=== PATIENT | male | born 1990 | race American Indian/Alaskan Native ===

== ENCOUNTER 2017-12-24 18:10 | Inpatient (IN) | payer MEDICAID ==
[2017-12-24 18:15] VITALS: O2SAT 97
[2017-12-24] MEDS ORDERED: Sodium Chloride 0.9% 1,000 ML IV STA (19:14)
--- NOTE | 2017-12-24 20:04 | ED PDOC ---
HPI: Psych/Substance Abuse Time Seen by Provider: 12/24/17 18:29 Chief Complaint (Nursing): Palpitations Chief Complaint (Provider): Psych Eval History Per: Patient History/Exam Limitations: no limitations Onset/Duration Of Symptoms: Days (x1 month) Current Symptoms Are (Timing): Still Present Additional Complaint(s): 27 year old male presents to the ED via EMS for a psychiatric evaluation. As per patient, ever since moving from a [place] homeless senior care to the [facility] , he has been off his medications because he feels as if they are not working, stating he has also been hearing voices and sleeping poorly. Otherwise, he denies suicidal / homicidal ideation, and drug or alcohol use today. PMD: none provided Past Medical History Reviewed: Historical Data, Nursing Documentation, Vital Signs Vital Signs: Last Vital Signs Temp 98.7 F 12/24/17 18:13 Pulse 130 H 12/24/17 18:13 Resp 16 12/24/17 18:13 BP 134/79 12/24/17 18:13 Pulse Ox 97 12/24/17 18:13 - Medical History PMH: Bipolar Disorder, Depression Denies: Chronic Kidney Disease - Surgical History Surgical History: No Surg Hx - Family History Family History: States: No Known Family Hx - Living Arrangements Living Arrangements: Other (homeless senior care) - Social History Current smoker - smoking cessation education provided: Yes Alcohol: Social Drugs: Cannabis - Allergies Allergies/Adverse Reactions: Allergies Allergy/AdvReac Type Severity Reaction Status Date / Time No Known Allergies Allergy Verified 12/24/17 19:04 Review of Systems ROS Statement: Except As Marked, All Systems Reviewed And Found Negative Psych: Positive for: Other (auditory hallucinations). Negative for: Suicidal ideation (or homicidal) Physical Exam - Reviewed Nursing Documentation Reviewed: Yes Vital Signs Reviewed: Yes - Physical Exam Appears: Positive for: No Acute Distress Head Exam: Positive for: ATRAUMATIC, NORMOCEPHALIC Skin: Positive for: Warm, Dry Eye Exam: Positive for: EOMI, PERRL ENT: Negative for: Pharyngeal Erythema, Tonsillar Exudate Neck: Positive for: Painless ROM, Supple Cardiovascular/Chest: Positive for: Chest Non Tender, Tachycardia (with regular rhythm). Negative for: Murmur Respiratory: Positive for: Normal Breath Sounds. Negative for: Respiratory Distress Gastrointestinal/Abdominal: Positive for: Soft. Negative for: Tenderness Back: Positive for: Normal Inspection. Negative for: Decreased ROM Extremity: Positive for: Normal ROM. Negative for: Deformity Lymphatic: Negative for: Adenopathy Neurologic/Psych: Positive for: Alert, Mood/Affect (anxious mood, flat affect). Negative for: Motor/Sensory Deficits - Laboratory Results Result Diagrams: 12/24/17 19:42 12/24/17 19:42 - ECG ECG Rhythm: Positive for: Normal ST Segment, Sinus Rhythm (w PACs) O2 Sat by Pulse Oximetry: 97 (RA) Pulse Ox Interpretation: Normal Medical Decision Making Medical Decision Making: Time: 1912 Initial Impression: bipolar disorder, auditory hallucinations, tachycardia Ddx includes but is not limited to: dehydration, decompensation of bipolar disorder, alcohol / drug intoxication Initial Plan: --EKG --Acetaminophen --Alcohol serum --CMP --Drug screen --Salicylate --Crisis eval --Urine dipstick --CBC with differential --Normal saline IV Labs unremarkable HR improved with rest and IVF Evaluated by STELLA Cuellar who dw Dr Littlejohn. Pt to be hospitalized for bipolar stabilization. Medically stable for psychiatric floor. Scribe Attestation: Documented by Katie Suarez, acting as a scribe for Shakila Wood MD. Provider Scribe Attestation: All medical record entries made by the Scribe were at my direction and personally dictated by me. I have reviewed the chart and agree that the record accurately reflects my personal performance of the history, physical exam, medical decision making, and the department course for this patient. I have also personally directed, reviewed, and agree with the discharge instructions and disposition. Disposition - Clinical Impression Clinical Impression: Bipolar disorder - Disposition Disposition Time: 21:00 Condition: STABLE - Pt Status Changed To: Hospital Disposition Of: Inpatient - Admit Certification Admit to Inpatient:: After my assessment, the patient will require hospitalization for at least two midnights. This is because of the severity of symptoms shown, intensity of services needed, and/or the medical risk in this patient being treated as an outpatient. - POA Present On Arrival: None
[2017-12-24 20:05] LABS: BASO # 0.1 K/uL (0.0-0.2); BASO % 0.9 % (0.0-2.0); EOS # 0.2 K/uL (0.0-0.7); EOS % 2.3 % (0.0-4.0); LYMPH # 2.1 K/uL (1.0-4.3); LYMPH % 27.2 % (20.0-40.0); MEAN CELL VOLUME 86.4 fl (80.0-94.0); MEAN CORPUSCULAR HEMOGLOBIN 29.3 pg (27.0-31.0); MEAN CORPUSCULAR HGB CONC 33.9 g/dL (33.0-37.0); MEAN PLATELET VOLUME 10.5 fl (7.2-11.7); MONO # 1.1 K/uL (0.0-0.8); MONO % 14.4 % (0.0-10.0); NEUT # 4.2 K/uL (1.8-7.0); NEUT % 55.2 % (50.0-75.0); NRBC % 0.1 % (0.0-0.0); RBC 5.13 Mil/uL (4.40-5.90); RED CELL DISTRIBUTION WIDTH 14.3 % (11.5-14.5); WHITE BLOOD COUNT 7.6 K/uL (4.8-10.8)
[2017-12-24 20:29] LABS: BLOOD UREA NITROGEN 12 mg/dl (9-20); CALCIUM 9.8 mg/dL (8.4-10.2); GFR AFRICAN-AMERICAN > 60; GFR NON-AFRICAN AMERICAN > 60
[2017-12-24 20:30] LABS: ALBUMIN 4.7 g/dL (3.5-5.0); AST/SGOT 23 U/L (17-59)
[2017-12-24 20:31] LABS: ALT/SGPT 23 U/L (21-72)
[2017-12-24 20:40] LABS: ACETAMINOPHEN < 10.0 ug/ml (10.0-30.0); SALICYLATE < 1.0 mg/dL 1
[2017-12-24 21:33] LABS: ALB/GLOB RATIO 1.2 (1.0-2.1)
[2017-12-24] MEDS ORDERED: Magnesium Hydroxide Susp 30 ml UD PO PRN (23:48)
[2017-12-24] MEDS ORDERED: DiphenhydrAMINE 50 mg/ml Inj IM PRN (23:48)
[2017-12-24] MEDS ORDERED: Alum-Mag Hydrox-Simethicone Susp (30 mL) PO PRN (23:48)
--- NOTE | 2017-12-25 00:45 | PCM.BM ---
<Ankita Frank P - Last Filed: 12/25/17 00:44> Treatment Plan Problems - Problems identified on initial assessmt Medication nonadherence Date Initiated: 12/25/17 Time Initiated: 00:44 Assessment reference: NA Status: Active Altered Sleep Patterns Date Initiated: 12/25/17 Time Initiated: 00:44 Assessment reference: NA Status: Active Treatment assets and liabiliti Patient Assests: cooperative, ADL independent, negotiates basic needs, cognitively intact Patient Liabilities: live alone, financial problems, poor support system - Milieu Protocol Maintain good personal hygiene: daily Encourage regular showers, daily Remind patient to perform daily oral care, daily Assist patient to perform ADL's Conduct patient checks and document Observation sheet: Q15 minutes Maintain personal safety: every shift Educate patient to report safety concerns to staff, every shift Monitor environment for contraband/sharps Medication safety: Monitor for expected outcome, potential side effects: every shift, Assess barriers to learning: every shift, Assess readiness for medication education: every shift <Timothy Spence J - Last Filed: 12/27/17 12:10> Discharge/Continuing Care - Discharge Discharge Criteria: Tolerates medication w/o severe side effects Discharge to:: Group Home - Treatment Team Participation Patient/Family/SO Statement: 12/27/17 12:00 Pt seen in team today and reported he is still having trouble sleeping and feels the medication is not working. Pt appeared internally preoccupied with poor eye contact. Pt admitted that the auditory hallucinations are still fairly severe and are telling him that he is going to , his dad won't help him and that the other patients think he is crazy. Dr. Littlejohn discussed raising his Risperdal to 3mg BID. Pt reported he has been non-compliant for the past 2 years. Pt would like to be referred to a [facility], [place]. <Juan Carlos Littlejohn - Last Filed: 12/31/17 08:53> - Diagnosis (1) Psychosis Status: Acute Interventions: psychotherapy, pharmacotherapy 12/31/17 08:52
[2017-12-25 01:24] LABS: SQUAMOUS EPITHIAL 1 /hpf (0-5); URINE BILIRUBIN NEGATIVE (NEGATIVE); URINE BLOOD MODERATE (NEGATIVE); URINE CLARITY CLOUDY (Clear); URINE COLOR YELLOW (YELLOW); URINE GLUCOSE (UA) NEG (Normal); URINE LEUKOCYTE ESTERASE MOD Leu/uL (Negative); URINE PROTEIN 30 mg/dL (NEGATIVE); URINE UROBILINOGEN 0.2-1.0 mg/dL (0.2-1.0); WBC CLUMPS FEW /hpf
[2017-12-25 01:47] LABS: BARBITURATES, UR NEGATIVE (NEGATIVE); BENZODIAZEPINES, UR NEGATIVE (NEGATIVE); OPIATES, UR NEGATIVE (NEGATIVE); PHENCYCLIDINE, UR NEGATIVE (NEGATIVE)
[2017-12-25 07:15] LABS: T4 10.6 ug/dl (5.5-11.0)
--- NOTE | 2017-12-25 07:19 | CARD ---
APPROVED REPORT Date of service: 12/24/2017 <Conclusion> Sinus tachycardia Moderate voltage criteria for LVH, may be normal variant ST elevation, consider early repolarization, pericarditis, or injury Abnormal ECG
--- NOTE | 2017-12-25 08:50 | RAD ---
Date of service: 12/24/2017 HISTORY: dizzy COMPARISON: No prior. FINDINGS: LUNGS: No active pulmonary disease. PLEURA: No significant pleural effusion identified, no pneumothorax apparent. CARDIOVASCULAR: Normal. OSSEOUS STRUCTURES: No significant abnormalities. VISUALIZED UPPER ABDOMEN: Normal. OTHER FINDINGS: None. IMPRESSION: No active disease.
--- NOTE | 2017-12-25 11:38 | PCM.PSYCH ---
Initial Psychiatric Evaluation - Initial Psychiatric Evaluation Type of Admission: Voluntary Legal Status: Capacity Chief Complaint (in patient's own words): I am hearing voices and I have suicidal thoughts Patient's Reaction to Hospitalization: pt requested help History of Present Illness and Precipitating Events: pt is 27 ys old with previous psychiatric diagnosis of bipolar disorder since age 21, pt has not been compliant with medications or follow up since last may, he started decompensating, pt reporte for the past month has been experiencing auditory hallucinations,putting him down, on day of evaluation became increasingly depressed, started having suicidal ideation with plan to jump off the bridge, he came to ER seeking help pt on evaluation continues to have , putting him down, feeling hopeless , with passive suicidal ideation no active plan on the unit, denied command hallucinations, denied homicidal ideation reported decreased sleep with early insomnia, pt has been using cannabis every other day auditory hallucinations Current Medications: Active Medications Generic Name Dose Route Start Last Admin Trade Name Freq PRN Reason Stop Dose Admin Acetaminophen 650 mg 12/24/17 23:48 Tylenol 325mg Tab PO Q4 PRN pain level 4-7 Al Hydrox/Mg Hydrox/Simethicone 30 ml 12/24/17 23:48 Maalox Plus 30 Ml PO Q4 PRN Dyspepsia Diphenhydramine HCl 50 mg 12/24/17 23:48 Benadryl IM Q6 PRN Extrapyramidal S/S Unable PO Diphenhydramine HCl 50 mg 12/24/17 23:48 Benadryl PO Q6 PRN Extrapyramidal Symptoms Diphenhydramine HCl 50 mg 12/24/17 23:50 Benadryl PO HS PRN Sleep Haloperidol 5 mg 12/24/17 23:48 Haldol PO Q4 PRN Agitation Haloperidol Lactate 5 mg 12/24/17 23:48 Haldol IM Q4 PRN Agitation, Unable to Take PO Lorazepam 1 mg 12/24/17 23:48 Ativan IM Q8 PRN Anxiety/Agitation,Unable PO Lorazepam 1 mg 12/24/17 23:48 Ativan PO Q8H PRN Anxiety/Agitation Magnesium Hydroxide 30 ml 12/24/17 23:48 Milk Of Magnesia PO HS PRN Constipation Risperidone 2 mg 12/25/17 22:00 Risperdal Tab PO HS NICOLAS Risperidone 2 mg 12/25/17 11:19 Risperdal Tab PO 12/25/17 11:20 STAT STA Past Psychiatric History - Past Psychiatric History Explanation of prior treatment: multiple hospitalizations since age 21, history of non compliance History of Abuse: denied History of ETOH/Drug Use: cannabis abuse History of Family Illness: history of mental illness on both parents side Pertinent Medical Hx (Current Medical&Sleep Prob, Allergies): Allergies Allergy/AdvReac Type Severity Reaction Status Date / Time No Known Allergies Allergy Verified 12/24/17 19:04 Mental Status Examination - Personal Presentation Personal Presentation: Looks stated age - Affect Affect: Constricted - Motor Activity Motor Activity: Psychomotor Retardation - Reliability in Providing Information Reliability in Providing Information: Poor, due to alteration in thoughts - Speech Speech: Tangential - Mood Mood: Depressed, Anxious - Formal Thought Process Formal Thought Process: Hallucinations Additional comments: pt reported non command auditory hallucinations - Hallucinations/Delusions Hallucinations: Auditory - Obsessions/Compulsions Obsessions: No Compulsions: No - Cognitive Functions Orientation: Person, Place, Situation Sensorium: Alert Attention/Concentration: Easily distracted Judgement: Imparied, as evidence by: Poor judgement, Imparied, as evidence by: Lack of insight into illness - Risk Risk: Suicidal, Diminished functioning - Strength & Assets Inventory Strength & Assets Inventory: Life experience - Limitations Additional comments: poor compliance DSM 5 DX - DSM 5 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
--- NOTE | 2017-12-25 16:32 | CP.PCM.CON ---
History of Present Illness - History of Present Illness History of Present Illness: 27 yo male with history of bipolar DO admitted to psyche unit because of depression Review of Systems - Review of Systems All systems: reviewed and no additional remarkable complaints except (aside from those mentioned above, 12 point system review were negative by me) Past Patient History - Infectious Disease Hx of Infectious Diseases: None - Tetanus Immunizations Tetanus Immunization: Unknown - Past Social History Smoking Status: Light Smoker < 10 Cigarettes Daily Chewing Tobacco Use: No Cigar Use: No Alcohol: Social Drugs: Cannabis - CARDIAC Hx Cardiac Disorders: No - PULMONARY Hx Respiratory Disorders: No - NEUROLOGICAL Hx Neurological Disorder: No - HEENT Hx HEENT Problems: No - RENAL Hx Chronic Kidney Disease: No - ENDOCRINE/METABOLIC Hx Endocrine Disorders: No - HEMATOLOGICAL/ONCOLOGICAL Hx Blood Disorders: No - INTEGUMENTARY Hx Dermatological Problems: No - MUSCULOSKELETAL/RHEUMATOLOGICAL Hx Musculoskeletal Disorders: No - GASTROINTESTINAL Hx Gastrointestinal Disorders: No - GENITOURINARY/GYNECOLOGICAL Hx Genitourinary Disorders: No - PSYCHIATRIC Hx Bipolar Disorder: Yes Hx Depression: Yes Hx Substance Use: Yes (mj) - SURGICAL HISTORY Hx Surgeries: Yes Other/Comment: 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 - ANESTHESIA Hx Anesthesia: Yes Hx Anesthesia Reactions: No Meds Allergies/Adverse Reactions: Allergies Allergy/AdvReac Type Severity Reaction Status Date / Time No Known Allergies Allergy Verified 12/24/17 19:04 - Medications Medications: Current Medications Acetaminophen (Tylenol 325mg Tab) 650 mg PO Q4 PRN PRN Reason: pain level 4-7 Al Hydrox/Mg Hydrox/Simethicone (Maalox Plus 30 Ml) 30 ml PO Q4 PRN PRN Reason: Dyspepsia Diphenhydramine HCl (Benadryl) 50 mg IM Q6 PRN PRN Reason: Extrapyramidal S/S Unable PO Diphenhydramine HCl (Benadryl) 50 mg PO Q6 PRN PRN Reason: Extrapyramidal Symptoms Diphenhydramine HCl (Benadryl) 50 mg PO HS PRN PRN Reason: Sleep Haloperidol (Haldol) 5 mg PO Q4 PRN PRN Reason: Agitation Haloperidol Lactate (Haldol) 5 mg IM Q4 PRN PRN Reason: Agitation, Unable to Take PO Lorazepam (Ativan) 1 mg IM Q8 PRN PRN Reason: Anxiety/Agitation,Unable PO Lorazepam (Ativan) 1 mg PO Q8H PRN PRN Reason: Anxiety/Agitation Magnesium Hydroxide (Milk Of Magnesia) 30 ml PO HS PRN PRN Reason: Constipation Risperidone (Risperdal Tab) 2 mg PO HS NICOLAS Trazodone HCl (Desyrel) 100 mg PO HS NICOLAS Physical Exam - Constitutional Appears: No Acute Distress - Head Exam Head Exam: ATRAUMATIC - Eye Exam Eye Exam: absent: Scleral icterus - ENT Exam ENT Exam: Mucous Membranes Moist - Neck Exam Neck exam: Negative for: Meningismus - Respiratory Exam Respiratory Exam: absent: Rales, Rhonchi, Wheezes, Respiratory Distress - Cardiovascular Exam Cardiovascular Exam: REGULAR RHYTHM, +S1, +S2 - GI/Abdominal Exam GI & Abdominal Exam: Soft. absent: Tenderness - Rectal Exam Rectal Exam: Deferred - Neurological Exam Neurological exam: Alert, Oriented x3 - Psychiatric Exam Psychiatric exam: Normal Affect - Skin Skin Exam: Dry, Intact Results - Vital Signs Recent Vital Signs: Last Vital Signs Temp 97.7 F 12/25/17 16:04 Pulse 83 12/25/17 16:04 Resp 18 12/25/17 16:04 BP 134/58 L 12/25/17 16:04 Pulse Ox 97 12/24/17 23:28 - Labs Result Diagrams: 12/24/17 19:42 12/24/17 19:42 Labs: Laboratory Results - last 24 hr 12/24/17 12/24/17 12/24/17 19:42 19:42 19:42 WBC 7.6 RBC 5.13 Hgb 15.0 Hct 44.4 MCV 86.4 MCH 29.3 MCHC 33.9 RDW 14.3 Plt Count 189 MPV 10.5 Neut % (Auto) 55.2 Lymph % (Auto) 27.2 [place] % (Auto) 14.4 H Eos % (Auto) 2.3 Baso % (Auto) 0.9 Neut # (Auto) 4.2 Lymph # (Auto) 2.1 [place] # (Auto) 1.1 H Eos # (Auto) 0.2 Baso # (Auto) 0.1 Sodium 141 Potassium 4.3 Chloride 103 Carbon Dioxide 22 Anion Gap 20 BUN 12 Creatinine 0.8 Est GFR ( Amer) > 60 Est GFR (Non-Af Amer) > 60 Random Glucose 90 Hemoglobin A1c Calcium 9.8 Total Bilirubin 0.3 AST 23 ALT 23 Alkaline Phosphatase 74 Total Protein 8.4 H Albumin 4.7 Globulin 3.7 Albumin/Globulin Ratio 1.2 Triglycerides Cholesterol LDL Cholesterol Direct HDL Cholesterol Thyroxine (T4) TSH 3rd Generation Urine Color Urine Clarity Urine pH Ur Specific [place] Urine Protein Urine Glucose (UA) Urine Ketones Urine Blood Urine Nitrate Urine Bilirubin Urine Urobilinogen Ur Leukocyte Esterase Urine RBC (Auto) Urine WBC Clumps (Auto) Urine Microscopic WBC Ur Squamous Epith Cells Salicylates < 1.0 Urine Opiates Screen Urine Methadone Screen Acetaminophen < 10.0 L Ur Barbiturates Screen Ur Phencyclidine Scrn Ur Amphetamines Screen U Benzodiazepines Scrn U Oth Cocaine Metabols U Cannabinoids Screen Alcohol, Quantitative < 10 RPR 12/25/17 12/25/17 12/25/17 01:13 01:13 06:48 WBC RBC Hgb Hct MCV MCH MCHC RDW Plt Count MPV Neut % (Auto) Lymph % (Auto) [place] % (Auto) Eos % (Auto) Baso % (Auto) Neut # (Auto) Lymph # (Auto) [place] # (Auto) Eos # (Auto) Baso # (Auto) Sodium Potassium Chloride Carbon Dioxide Anion Gap BUN Creatinine Est GFR ( Amer) Est GFR (Non-Af Amer) Random Glucose Hemoglobin A1c Calcium Total Bilirubin AST ALT Alkaline Phosphatase Total Protein Albumin Globulin Albumin/Globulin Ratio Triglycerides 62 Cholesterol 143 LDL Cholesterol Direct 68 HDL Cholesterol 42 Thyroxine (T4) 10.6 TSH 3rd Generation 1.34 Urine Color Yellow Urine Clarity Cloudy Urine pH 5.0 Ur Specific [place] 1.020 Urine Protein 30 Urine Glucose (UA) Neg Urine Ketones Negative Urine Blood Moderate Urine Nitrate Negative Urine Bilirubin Negative Urine Urobilinogen 0.2-1.0 Ur Leukocyte Esterase Mod Urine RBC (Auto) 31 H Urine WBC Clumps (Auto) Few H Urine Microscopic WBC 556 H Ur Squamous Epith Cells 1 Salicylates Urine Opiates Screen Negative Urine Methadone Screen Negative Acetaminophen Ur Barbiturates Screen Negative Ur Phencyclidine Scrn Negative Ur Amphetamines Screen Negative U Benzodiazepines Scrn Negative U Oth Cocaine Metabols Negative U Cannabinoids Screen Positive H Alcohol, Quantitative RPR 12/25/17 12/25/17 06:48 06:48 WBC RBC Hgb Hct MCV MCH MCHC RDW Plt Count MPV Neut % (Auto) Lymph % (Auto) [place] % (Auto) Eos % (Auto) Baso % (Auto) Neut # (Auto) Lymph # (Auto) [place] # (Auto) Eos # (Auto) Baso # (Auto) Sodium Potassium Chloride Carbon Dioxide Anion Gap BUN Creatinine Est GFR ( Amer) Est GFR (Non-Af Amer) Random Glucose Hemoglobin A1c 5.7 Calcium Total Bilirubin AST ALT Alkaline Phosphatase Total Protein Albumin Globulin Albumin/Globulin Ratio Triglycerides Cholesterol LDL Cholesterol Direct HDL Cholesterol Thyroxine (T4) TSH 3rd Generation Urine Color Urine Clarity Urine pH Ur Specific [place] Urine Protein Urine Glucose (UA) Urine Ketones Urine Blood Urine Nitrate Urine Bilirubin Urine Urobilinogen Ur Leukocyte Esterase Urine RBC (Auto) Urine WBC Clumps (Auto) Urine Microscopic WBC Ur Squamous Epith Cells Salicylates Urine Opiates Screen Urine Methadone Screen Acetaminophen Ur Barbiturates Screen Ur Phencyclidine Scrn Ur Amphetamines Screen U Benzodiazepines Scrn U Oth Cocaine Metabols U Cannabinoids Screen Alcohol, Quantitative RPR Nonreactive Assessment & Plan (1) Depression Status: Acute Comment: psyche is managing
--- NOTE | 2017-12-26 11:18 | PCM.PYCHPN ---
Psychiatric Progress Note - Psychiatric Progress Note Patient seen today, length of contact: pt evaluated discussed with team chart reviewed Patient Chief Complaint: I still hear voices so I could not sleep Problems Identified/Issues Discussed: pt evaluated, presenting with anxious mood and affect, continues to report early insomnia, relates that to the non command auditory hallucinations, discussed with pt gradual increase in dose of risperidone and trazodone , no reported side effects motivational therapy provided in reference to cannabis use, encouraged pt to attend groups pt denied command hallucinations denied suicidal or homicidal ideation DSM 5 Symptoms Update: cannabis induced psychotic disorder cannabis abuse bipolar disorder Medication Change: Yes (increase risperidone) Medical Record Reviewed: Yes Mental Status Examination - Cognitive Function Orientation: Person, Place, Situation Memory: Intact Attention: WNL Concentration: Poor Association: WNL Fund of Knowledge: Poor Decription of patient's judgement and insights: poor insight and judgment - Mood Mood: Depressed, Anxious - Affect Affect: Constricted - Formal Thought Process Formal Thought Process: Hallucinations Psychotic Thoughts and Behaviors: pt reported non command auditory hallucinations, putting him down - Suicidal Ideation Suicidal Ideation: No - Homicidal Ideation Homicidal Ideation: No Goal/Treatment Plan - Goal/Treatment Plan Need for Continued Stay: Remain at risks for inpatient hospitalization, Discharge may exacerbated symptoms, Severe functional impairment Progress Toward Problem(s) and Goals/Treatment Plan: increase risperidone 2mg daily and 3mg qhs increase trazodone 200mg qhs for insomnia monitor pt for psychopharmacological effects and side effect profile group and supportive therapy
--- NOTE | 2017-12-27 15:57 | PCM.PYCHPN ---
Psychiatric Progress Note - Psychiatric Progress Note Patient seen today, length of contact: pt evaluated discussed with team chart reviewed Patient Chief Complaint: I still hear voices I could not sleep Problems Identified/Issues Discussed: pt evaluated, with treatment team, reported continues to have non command auditory hallucinations, putting him down, presenting with irritable mood and affect, internally preoccupied with thought blocking, also reported decreased sleep, discussed with pt increasing risperidone and adding depakote for mood stabilization, encouraged pt to attend groups and participate in treatment pt denied command hallucinations denied suicidal or homicidal ideation Medical Problems: multiple hospitalizations since age 21, history of non compliance DSM 5 Symptoms Update: schizoaffective disorder cannabis dependence Medication Change: Yes (increase risperidone) Medical Record Reviewed: Yes Mental Status Examination - Cognitive Function Orientation: Person, Place, Situation Memory: Intact Attention: WNL Concentration: Poor Association: WNL Fund of Knowledge: Poor Decription of patient's judgement and insights: poor insight and judgment - Mood Mood: Depressed, Anxious - Affect Affect: Constricted - Formal Thought Process Formal Thought Process: Hallucinations Psychotic Thoughts and Behaviors: pt reported non command auditory hallucinations, putting him down - Suicidal Ideation Suicidal Ideation: No - Homicidal Ideation Homicidal Ideation: No Goal/Treatment Plan - Goal/Treatment Plan Need for Continued Stay: Remain at risks for inpatient hospitalization, Discharge may exacerbated symptoms, Severe functional impairment Progress Toward Problem(s) and Goals/Treatment Plan: increase [id number] bid start depakote 500mg for mood stabilization trazodone 200mg qhs for insomnia monitor pt for psychopharmacological effects and side effect profile group and supportive therapy
[2017-12-27] MEDS: Divalproex 500 mg DR(BID formulation) PO SCH (21:45)
--- NOTE | 2017-12-28 15:58 | PCM.PYCHPN ---
Psychiatric Progress Note - Psychiatric Progress Note Patient seen today, length of contact: pt evaluated discussed with team chart reviewed Patient Chief Complaint: feeling little calmer, less commentary hallucination, sleep somewhat improved, denies side effects. seen in social area watching. Problems Identified/Issues Discussed: alteration in mood alteration in cognition Medical Problems: per chart Diagnostic Results: per psychiatry per medicine per nursing per social science teacher per recreational therapy DSM 5 Symptoms Update: somewhat lessened auditory hallucinations. mood somewhat calmer. Medication Change: No Medical Record Reviewed: Yes Consults ordered or reviewed: pt seen by hospitalist Mental Status Examination - Cognitive Function Orientation: Person, Place, Situation, Time Memory: Intact Attention: WNL Concentration: WNL Association: WN Fund of Knowledge: [facility] Decription of patient's judgement and insights: impaired - Mood Mood: Depressed, Anxious Additional comments: somewhat lessened - Affect Affect: Constricted - Speech Speech: Soft (commentary) - Formal Thought Process Formal Thought Process: Hallucinations - Suicidal Ideation Suicidal Ideation: No - Homicidal Ideation Homicidal Ideation: No Goal/Treatment Plan - Goal/Treatment Plan Need for Continued Stay: Remain at risks for inpatient hospitalization, Discharge may exacerbated symptoms, Severe functional impairment Progress Toward Problem(s) and Goals/Treatment Plan: inpt milieu adjust meds per status vital signs and clinical observation per protocol and per clinical status valproic acid level with lfts [id number] psychoeducation likely effects thc mood cognition pt processes possible return to [place] to visit mother discharge planning in progress Estimated Date of D/C: 12/31/17 - Smoking Cessation Smoking Cessation Initiated: No Reason for not providing: pt defers
[2017-12-28] MEDS: Divalproex 500 mg DR(BID formulation) PO SCH (21:05)
--- NOTE | 2017-12-29 17:48 | PCM.PYCHPN ---
Psychiatric Progress Note - Psychiatric Progress Note Patient seen today, length of contact: pt evaluated discussed with team chart reviewed Patient Chief Complaint: feeling little calmer, no commentary hallucination, sleep , denies side effects. seen in social area watching tv. Problems Identified/Issues Discussed: alteration in mood alteration in cognition Medical Problems: per chart Diagnostic Results: per psychiatry per medicine per nursing per psych social worker per recreational therapy DSM 5 Symptoms Update: improving mood and cognitive status Medication Change: No Medical Record Reviewed: Yes Consults ordered or reviewed: pt seen by hospitalist Mental Status Examination - Cognitive Function Orientation: Person, Place, Situation, Time Memory: Intact Attention: WNL Concentration: WNL Association: [facility] Fund of Knowledge: [facility] Decription of patient's judgement and insights: impaired - Mood Mood: Depressed, Anxious - Affect Affect: Broad - Speech Speech: Soft (commentary) - Formal Thought Process Formal Thought Process: No Impairment - Suicidal Ideation Suicidal Ideation: No - Homicidal Ideation Homicidal Ideation: No Goal/Treatment Plan - Goal/Treatment Plan Need for Continued Stay: Remain at risks for inpatient hospitalization, Discharge may exacerbated symptoms, Severe functional impairment Progress Toward Problem(s) and Goals/Treatment Plan: inpt milieu adjust meds per status vital signs and clinical observation per protocol and per clinical status valproic acid level with lfts [id number] psychoeducation likely effects thc mood cognition pt processes possible return to [place] to visit mother discharge planning in progress Estimated Date of D/C: 12/31/17 - Smoking Cessation Smoking Cessation Initiated: No Reason for not providing: pt defers
[2017-12-29] MEDS: Divalproex 500 mg DR(BID formulation) PO SCH (21:07)
[2017-12-30 08:40] LABS: ALB/GLOB RATIO 1.2 (1.0-2.1); ALBUMIN 4.6 g/dL (3.5-5.0); BILIRUBIN,DIRECT 0.2 mg/ml (0.0-0.4)
[2017-12-30 09:19] VITALS: RESP 18
--- NOTE | 2017-12-30 14:28 | PCM.PYCHPN ---
Psychiatric Progress Note - Psychiatric Progress Note Patient seen today, length of contact: pt evaluated discussed with team chart reviewed Patient Chief Complaint: I feel better with depakote Problems Identified/Issues Discussed: pt evaluated, reported improved mood, relates that to being started on depakote with decreased irritability and improved sleep pt reported clearing off of the auditory hallucinations with the increase in risperidone, no reported side effects of medications pt less isolative, interacting more with peers and staff, encouraged to attend groups pt denied any current suicidal or homicidal ideation Medical Problems: multiple hospitalizations since age 21, history of non compliance DSM 5 Symptoms Update: schizoaffective disorder cannabis abuse Medication Change: No Medical Record Reviewed: Yes Mental Status Examination - Cognitive Function Orientation: Person, Place, Situation, Time Memory: Intact Attention: WNL Concentration: WNL Association: WNL Fund of Knowledge: WN Decription of patient's judgement and insights: partial insight , poor judgment - Mood Mood: Anxious - Affect Affect: Constricted - Speech Speech: Appropriate - Formal Thought Process Formal Thought Process: Circumstantial Psychotic Thoughts and Behaviors: pt reported clearing off of the auditory hallucinations - Suicidal Ideation Suicidal Ideation: No - Homicidal Ideation Homicidal Ideation: No Goal/Treatment Plan - Goal/Treatment Plan Need for Continued Stay: Remain at risks for inpatient hospitalization, Discharge may exacerbated symptoms, Severe functional impairment Progress Toward Problem(s) and Goals/Treatment Plan: continue [id number] bid depakote 500mg for mood stabilization trazodone 200mg qhs for insomnia monitor pt for psychopharmacological effects and side effect profile group and supportive therapy Estimated Date of D/C: 12/31/17
[2017-12-30 16:36] VITALS: BP 114/72; PULSE 75; TEMP 97
[2017-12-30] MEDS: Divalproex 500 mg DR(BID formulation) PO SCH (21:03)
--- NOTE | 2017-12-31 10:07 | PCM.PYCHDC ---
Mental Status Examination - Mental Status Examination Orientation: Person, Place, Situation Memory: Intact Affect: Broad Speech: Appropriate Attention: WNL Concentration: WNL Association: WNL Fund of Knowledge: WNL Formal Thought Process: Circumstantial Description of patient's judgement and insight: partial insight , fair judgment Psychotic Thoughts and Behaviors: pt on discharge denied psychotic symptoms, non elicited Suicidal Ideation: No Current Homicidal Ideation?: No Discharge Summary - Discharge Note Reason for Hospitalization: pt is 27 ys old with previous psychiatric diagnosis of bipolar disorder since age 21, pt has not been compliant with medications or follow up since last may, he started decompensating, pt reporte for the past month has been experiencing auditory hallucinations,putting him down, on day of evaluation became increasingly depressed, started having suicidal ideation with plan to jump off the bridge, he came to ER seeking help pt on evaluation continues to have , putting him down, feeling hopeless , with passive suicidal ideation no active plan on the unit, denied command hallucinations, denied homicidal ideation reported decreased sleep with early insomnia, pt has been using cannabis every other day auditory hallucinations Laboratory Data: Abnormal Lab Results 12/30/17 16:43 Valproic Acid 29.8 L Consultations:: List each consultation separately and include: 1. Reason for request. 2. Findings. 3. Follow-up Summary of Hospital Course include:: 1. Description of specific treatment plan utilized for patients during their course of treatmen. 2. Summarize the time- course for resolution of acute symptoms and/or regressed behaviors. 3. Describe issues identified and worked on during hospitalization. 4. Describe medication utilized. 5. Describe medical problems identified and treated. 6. Reassessment of suicide risk Summary of Hospital Course: pt on admission was started on risperidone , it was up titrated to 4mg daily pt was also started on depakote for mood stabilization and lexapro for depression motivational therapy was provided in reference to cannabis use pt was compliant with treatment, no reported side effects, on discharge mental status was stable, pt denied any current suicidal or hmicidal ideation , denied perceptual disturbances - Diagnosis (1) Psychosis Current Visit: Yes Status: Acute - Final Diagnosis (DSM 5) Condition upon Discharge: STABLE DSM 5: schizoaffective disorder depressed cannabis abuse Disposition: HOME/ ROUTINE Follow-up Treatment Plan: continue [id number] bid depakote 500mg for mood stabilization trazodone 200mg qhs for insomnia monitor pt for psychopharmacological effects and side effect profile group and supportive therapy Prescriptions/Medication Reconciliation: Benztropine [Cogentin] 0.5 mg PO HS 30 Days #30 tab Divalproex [Depakote DR(*BID*)] 500 mg PO HS 30 Days #30 tcp risperiDONE [RisperDAL Tab] 3 mg PO DAILY 30 Days #30 tab risperiDONE [RisperDAL Tab] 3 mg PO HS 30 Days #30 tab traZODone [Desyrel] 100 mg PO HS 30 Days #30 tab - Antipsychotic Medications Pt discharged on 2 or more routine antipsychotic medications: No
== END 2017-12-31 12:55 | disposition home or self-care (01) | DRG 430 ==
LOC: H.ER 18:10 → H.ERHOLD 21:06 → H.PSYCH 23:37
PROVIDERS: ADMIT Psychiatry & Neurology Psychiatry; ATTEND Psychiatry & Neurology Psychiatry
PROC: HZ57ZZZ Individual Psychotherapy for Substance Abuse Treatment, Motivational Enhancement (ICD-10-PCS; principal; 2017-12-24)
PROC: GZHZZZZ Group Psychotherapy (ICD-10-PCS; 2017-12-24)
PROC: GZ56ZZZ Individual Psychotherapy, Supportive (ICD-10-PCS; 2017-12-24)
DX: F25.1 Schizoaffective disorder, depressive type (principal); F12.10 Cannabis abuse, uncomplicated; G47.00 Insomnia, unspecified; R45.851 Suicidal ideations; Z91.14 Patient's other noncompliance with medication regimen; Z91.19 Patient's noncompliance with other medical treatment and regimen; F17.210 Nicotine dependence, cigarettes, uncomplicated

== ENCOUNTER 2018-01-21 08:06 | Emergency (ER) | payer MEDICAID ==
[2018-01-21 08:13] VITALS: RESP 18; O2SAT 98
[2018-01-21 08:14] VITALS: BMI 25.4
--- NOTE | 2018-01-21 08:54 | ED PDOC ---
HPI: Male Pain Time Seen by Provider: 01/21/18 08:39 Chief Complaint (Nursing): Male Genitourinary History Per: Patient History/Exam Limitations: no limitations Onset/Duration Of Symptoms: Days Current Symptoms Are (Timing): Intermittent Episodes Quality Of Discomfort: Burning Associated Symptoms: denies: Fever, Chills, Nausea, Vomiting Additional Complaint(s): CC: dysuria HPI: 27 YO Male with PMHx of Bipolar disorder, and depression presents to [facility] ED for dysuria. Pt states that he has had these symptoms for about a month now. Intermittent episodes of burning pain with urination, there is no associated discharge, n/v fever or chills. Pt states that his symptoms first started after he had unprotected sex a few weeks ago. Pt requesting HIV testing. PMD: Denies PMHx: Bipolar disorder, and depression SurgHx: denies SHx: +smoking (4 a day), denies ETOH, illicit drug use FHx: denies Allergies: NKDA Past Medical History Vital Signs: Last Vital Signs Temp 98.9 F 01/21/18 08:12 Pulse 92 H 01/21/18 08:12 Resp 18 01/21/18 08:12 BP 132/82 01/21/18 08:12 Pulse Ox 98 01/21/18 08:12 - Medical History PMH: Bipolar Disorder, Depression Denies: Chronic Kidney Disease - Surgical History Surgical History: No Surg Hx - Family History Family History: States: No Known Family Hx - Social History Current smoker - smoking cessation education provided: Yes Alcohol: None Drugs: Denies - Home Medications Home Medications: Ambulatory Orders Medication Instructions Recorded Benztropine [Cogentin] 0.5 mg PO HS 30 Days #30 tab 12/31/17 Divalproex [Depakote DR(*BID*)] 500 mg PO HS 30 Days #30 tcp 12/31/17 risperiDONE [RisperDAL Tab] 3 mg PO DAILY 30 Days #30 tab 12/31/17 risperiDONE [RisperDAL Tab] 3 mg PO HS 30 Days #30 tab 12/31/17 traZODone [Desyrel] 100 mg PO HS 30 Days #30 tab 12/31/17 Ciprofloxacin [Cipro] 500 mg PO BID #14 tab 01/21/18 - Allergies Allergies/Adverse Reactions: Allergies Allergy/AdvReac Type Severity Reaction Status Date / Time No Known Allergies Allergy Verified 12/24/17 19:04 Review of Systems Constitutional: Negative for: Fever, Chills Cardiovascular: Negative for: Chest Pain, Palpitations Respiratory: Negative for: Cough, Shortness of Breath Gastrointestinal: Negative for: Nausea, Vomiting, Abdominal Pain Genitourinary Male: Positive for: Dysuria, Hematuria. Negative for: Penile Discharge, Rash Skin: Negative for: Rash Physical Exam - Physical Exam Appears: Positive for: No Acute Distress Head Exam: Positive for: NORMAL INSPECTION Cardiovascular/Chest: Positive for: Regular Rate, Rhythm. Negative for: Murmur Respiratory: Positive for: Normal Breath Sounds. Negative for: Wheezing Gastrointestinal/Abdominal: Positive for: Normal Exam, Soft. Negative for: Tenderness Male Genital Exam: Positive for: normal genitalia, other (RN present in room, no penile lesions, discharge noted ). Negative for: inguinal tenderness, scrotum tenderness (R), scrotum tenderness (L), testicular tenderness (R), testicular tenderness (L), urethral discharge Back: Positive for: Normal Inspection. Negative for: L CVA Tenderness, R CVA Tenderness - ECG O2 Sat by Pulse Oximetry: 98 - Progress ED Course And Treament: 27 YO Male with dysuria. RPR on 12/25 neg -Udip, UA -GC/Ch -HIV as requested 12:10--pt seen and re-evaluated. Urine findings sig for +leukes, WBC and small blood GC/C pending 2-3 days HIV neg Pt offered to treat for GC/C due to sexual intercourse without protection. Pt states that he would like to be treated. 1G Azithromycin and 1x IM dose of 250 ceftriaxone Will give meds, and d/c home with Cipro x 7 days Please follow up with PMD in 1 week. Pt agrees with plan Disposition - Clinical Impression Clinical Impression: UTI (urinary tract infection), STD (sexually transmitted disease) - Disposition Referrals: [facility] [Outside] Disposition Time: 13:28 Condition: GOOD Additional Instructions: Take your medications as instructed. Follow up with your PCP in 2-3 days. Prescriptions: Ciprofloxacin [Cipro] 500 mg PO BID #14 tab Instructions: Urinary Tract Infection, Adult (DC), Screening for Sexually Transmitted Infections
[2018-01-21 10:58] LABS: SQUAMOUS EPITHIAL < 1 /hpf (0-5); URINE BACTERIA RARE (<OCC); URINE BILIRUBIN NEGATIVE (NEGATIVE); URINE BLOOD SMALL (NEGATIVE); URINE CLARITY SLIGHTY-CLOUDY (Clear); URINE COLOR YELLOW (YELLOW); URINE GLUCOSE (UA) NEG (Normal); URINE LEUKOCYTE ESTERASE LARGE Leu/uL (Negative); URINE PROTEIN NEGATIVE (NEGATIVE); URINE UROBILINOGEN 0.2-1.0 mg/dL (0.2-1.0)
[2018-01-21] MEDS ORDERED: cefTRIAXone (Rocephin) 250 mg Inj IM ONE (12:27)
[2018-01-21] MEDS ORDERED: cefTRIAXone (Rocephin) 250 mg Inj ONE (12:39)
[2018-01-21 12:54] VITALS: BP 132/74; PULSE 74; TEMP 98.6
== END 2018-01-21 12:54 | disposition home or self-care (01) ==
LOC: H.ER 08:06
DX: N39.0 Urinary tract infection, site not specified (principal); F17.200 Nicotine dependence, unspecified, uncomplicated; Z86.59 Personal history of other mental and behavioral disorders; A64 Unspecified sexually transmitted disease
CPT/HCPCS: 81003; 87390; 87491; 87591; 96372; 99283; J0696